=== PATIENT | female | born 1990 ===

== ENCOUNTER 2018-03-05 10:11 | Inpatient (IN) ==
[2018-03-05] MEDS ORDERED: ONDANSETRON 4 MG/2 ML VIAL IV PRN ×2 (10:43→12:17)
[2018-03-05] MEDS ORDERED: BUTORPHANOL 1 MG/ML VIAL IV PRN (10:43)
[2018-03-05] MEDS ORDERED: MEPERIDINE 50 MG/1 ML VIAL IV PRN (10:43)
[2018-03-05] MEDS ORDERED: LACTATED RINGERS 1,000 ML IV ONE (10:43)
[2018-03-05] MEDS ORDERED: AMPICILLIN INJ 2,000 MG in SODIUM CHLORIDE 0.9% 100 ML IV ONE (10:49)
[2018-03-05] MEDS ORDERED: FAMOTIDINE 20 MG/2 ML VIAL IV ONE (10:54)
[2018-03-05] MEDS ORDERED: ceFAZolin 2,000 MG in PREMIX 1 EACH IV ONE (10:54)
[2018-03-05] MEDS ORDERED: CITRIC ACID/SODIUM CITRATE 30 ML UDCUP PO ONE (10:54)
[2018-03-05 11:08] LABS: Basophils % 0.1 % (0.0-0.8); Eosinophils % 0.1 % (0.00-10.9); Hematocrit 32.8 VOL% (35.7-47.0); Hemoglobin 10.6 GM/DL (12.0-16.0); Immature Granulocytes % 0.8 %; Immature Granulocytes Absolute 0.12 #; Lymphocytes % 12.9 % (21.3-54.2); Mean Corpuscular HGB Conc 32.3 GM/DL (32-36); Mean Corpuscular Hemoglobin 27 PG (27-34); Mean Corpuscular Volume 84.8 FL (87-102); Monocytes # 0.8 10*3/uL (0.11-0.8); Monocytes % 4.8 % (1.7-12.7); Neutrophils # 12.7 10*3/uL (1.4-7.4); Neutrophils % 81.3 % (38.7-73.9); Platelet Count 266 T/CUMM (130-400); Red Blood Count 3.87 MC/CUMM (3.8-5.5); Red Cell Distribution Width 13.6 % (9.3-17.3); White Blood Count 15.6 T/CUMM (4-12)
[2018-03-05] MEDS ORDERED: BUPIVACAINE SPINAL 0.75% 2 ML AMP SPINAL ONE (11:13)
[2018-03-05] MEDS ORDERED: MORPHINE 10 MG/10 ML VIAL ONE (11:13)
[2018-03-05] MEDS ORDERED: fentaNYL 100 MCG/2 ML VIAL ONE (11:13)
[2018-03-05] MEDS ORDERED: KETOROLAC 60 MG/2 ML VIAL IM ONE (11:14)
[2018-03-05] MEDS ORDERED: OXYTOCIN 10 UNIT/ML VIAL ONE (11:14)
[2018-03-05 11:21] LABS: Apearance,Urine CLEAR (Clear); Bilirubin,Urine Negative (Negative); Blood, Urine Negative (Negative); Glucose,Urine (UA) Negative (Negative); Ketones,Urine 5 mg/dL (Negative); Mucus,Urine Occasional /LPF (Occasional); Nitrite,Urine Negative (Negative); Protein,Urine Negative; RBC,Urine 1 /HPF (0-4); Squamous Epithelial Cell,Urine Occasional /HPF (0-10); Urine Color Yellow (Yellow); Urine Specific Gravity 1.014 (1.001-1.035); WBC,Urine 1 /HPF (0-6)
[2018-03-05 11:32] LABS: Barbiturates Screen,Urine Negative (Negative); Benzodiazepines Screen,Urine Negative (Negative); Cannabinoid Screen,Urine Positive (Negative); Opiate Screen,Urine Negative (Negative); Phencyclidine Screen,Urine Negative (Negative)
[2018-03-05 11:40] LABS: Alanine Aminotransferase 11 U/L (13-56); Albumin 2.4 G/DL (3.4-5.0); Alkaline Phosphatase 193 U/L (45-117); Aspartate Amino Transferase 12 U/L (0-37); Bilirubin,Total < 0.39 MG/DL (0.2-1.0); Blood Urea Nitrogen 8 MG/DL (7-18); Calcium 8.4 MG/DL (8.5-10.1); Glucose 68 MG/DL (74-106); Osmolality,Calculated 274.4 MOS/KG (273-304); Potassium 4.2 MMOL/L (3.5-5.1); Sodium 140 MMOL/L (136-145); Uric Acid 3.8 MG/DL (2.6-6.0)
[2018-03-05] MEDS: LACTATED RINGERS 1,000 ML IV SCH ×2 (11:40→19:30)
[2018-03-05] MEDS ORDERED: OXYTOCIN/LR 20 UNIT/1,000 ML BAG IV ONE (12:17)
[2018-03-05] MEDS ORDERED: SIMETHICONE CHEW 80 MG TABLET PO PRN (12:17)
[2018-03-05] MEDS ORDERED: MAGNESIUM HYDROXIDE SUSP 30 ML UDCUP PO PRN (12:17)
[2018-03-05] MEDS ORDERED: RHO(D) IMMUNE GLOBULIN 300 MCG SYRINGE IM ONE (12:17)
[2018-03-05] MEDS ORDERED: ACETAMINOPHEN 325 MG TABLET PO PRN (12:17)
[2018-03-05] MEDS ORDERED: diphenhydrAMINE 50 MG/1 ML VIAL IV PRN (12:29)
[2018-03-05] MEDS ORDERED: hydrOXYzine HCL 25 MG/1 ML VIAL IM PRN (12:29)
[2018-03-05] MEDS ORDERED: HYDROmorphone 2 MG/1 ML VIAL IV PRN (12:29)
[2018-03-05] MEDS: OXYTOCIN/LR 20 UNIT/1,000 ML BAG IV SCH (13:00)
[2018-03-05] MEDS ORDERED: PROMETHAZINE 25 MG/1 ML VIAL IM PRN (14:54)
[2018-03-05] MEDS: KETOROLAC 30 MG/1 ML VIAL IV SCH ×2 (17:50→23:38)
[2018-03-05] MEDS: ceFAZolin 1,000 MG in SYRINGE 1 EACH IV SCH (20:20)
[2018-03-06 02:49] LABS: Basophils % 0.1 % (0.0-0.8); Hematocrit 25.2 VOL% (35.7-47.0); Hemoglobin 8.1 GM/DL (12.0-16.0); Immature Granulocytes % 0.3 %; Immature Granulocytes Absolute 0.05 #; Lymphocytes # 2.3 10*3/uL (1.4-4.0); Lymphocytes % 15.7 % (21.3-54.2); Mean Corpuscular HGB Conc 32.1 GM/DL (32-36); Mean Corpuscular Hemoglobin 27 PG (27-34); Mean Corpuscular Volume 82.9 FL (87-102); Mean Platelet Volume 9.4 FL (9.6-12.0); Monocytes # 1.1 10*3/uL (0.11-0.8); Monocytes % 7.2 % (1.7-12.7); Neutrophils # 11.2 10*3/uL (1.4-7.4); Neutrophils % 76.7 % (38.7-73.9); Platelet Count 220 T/CUMM (130-400); Red Blood Count 3.04 MC/CUMM (3.8-5.5); Red Cell Distribution Width 13.6 % (9.3-17.3); White Blood Count 14.6 T/CUMM (4-12)
[2018-03-06] MEDS: LACTATED RINGERS 1,000 ML IV SCH ×3 (03:17→06:26)
[2018-03-06] MEDS: DOCUSATE SODIUM 100 MG CAPSULE PO SCH ×3 (03:56→21:28)
[2018-03-06] MEDS ORDERED: SODIUM CHLORIDE 0.9% 100 ML IV ONE (04:06)
[2018-03-06] MEDS: IBUPROFEN 800 MG TABLET PO PRN ×2 (04:14→23:58)
[2018-03-06] MEDS: ceFAZolin 1,000 MG in SYRINGE 1 EACH IV SCH (04:14)
[2018-03-06] MEDS: KETOROLAC 30 MG/1 ML VIAL IV SCH (06:25)
[2018-03-06 08:10] LABS: Basophils % 0.2 % (0.0-0.8); Eosinophils % 0.2 % (0.00-10.9); Hemoglobin 7.7 GM/DL (12.0-16.0); Immature Granulocytes % 0.5 %; Immature Granulocytes Absolute 0.06 #; Lymphocytes # 2.6 10*3/uL (1.4-4.0); Lymphocytes % 19.7 % (21.3-54.2); Mean Corpuscular HGB Conc 33.5 GM/DL (32-36); Mean Corpuscular Hemoglobin 27 PG (27-34); Mean Corpuscular Volume 81.6 FL (87-102); Mean Platelet Volume 9.3 FL (9.6-12.0); Neutrophils # 9.3 10*3/uL (1.4-7.4); Neutrophils % 71.4 % (38.7-73.9); Platelet Count 215 T/CUMM (130-400); Red Blood Count 2.82 MC/CUMM (3.8-5.5); Red Cell Distribution Width 13.8 % (9.3-17.3); White Blood Count 13.1 T/CUMM (4-12)
[2018-03-06] MEDS: MULTIVITAMIN (PRENATAL) TABLET PO SCH (09:37)
[2018-03-07] MEDS: OXYTOCIN/LR 20 UNIT/1,000 ML BAG IV SCH (00:18)
[2018-03-07] MEDS: LACTATED RINGERS 1,000 ML IV SCH ×4 (00:18→06:21)
[2018-03-07] MEDS: KETOROLAC 30 MG/1 ML VIAL IV SCH (00:19)
[2018-03-07] MEDS: MULTIVITAMIN (PRENATAL) TABLET PO SCH (09:57)
[2018-03-07] MEDS: DOCUSATE SODIUM 100 MG CAPSULE PO SCH (09:57)
[2018-03-07] MEDS ORDERED: INFLUENZA VIRUS VACCINE 0.5 ML SYRINGE IM ONE (11:25)
[2018-03-07 15:38] VITALS: BP 130/75
== END 2018-03-07 19:05 | disposition home or self-care (01) | DRG 540 ==
LOC: N.LDOUT 10:11 → N.LD 10:13 → N.OB 15:06
PROVIDERS: ADMIT Obstetrics & Gynecology; ATTEND Obstetrics & Gynecology
PROC: LDCSECT (ICD-10-PCS; 2018-03-05 11:30)